=== PATIENT | female | born 1955 | race Caucasian/White ===

== ENCOUNTER 2020-03-02 14:23 | Emergency (ER) | payer MEDICARE, SELFPAY ==
--- NOTE | ~2020-03-02 | XR_ITS ---
EXAMINATION: XR shoulder LT min 2V DATE: 03/02/2020 14:54 INDICATION: Left shoulder pain. TECHNIQUE: 5 views of left shoulder were obtained. COMPARISON: None. FINDINGS: Bone alignment is normal. No fracture. There is fat There is severe osteoarthritis of acrom ioclavicular joint and mild osteoarthritis of glenohumeral joint. IMPRESSION: 1. Polyarticular osteoarthritis. Reviewed, dictated and finalized at location B.
--- NOTE | 2020-03-02 14:28 | ED.UPPEXIN ---
HPI - Extremity Injury (Upper) General Chief Complaint: Extremity Injury, Upper Stated Complaint: Upper extremity injury Time Seen by Provider: 03/02/20 14:36 Source: patient and RN notes reviewed Mode of arrival: ambulatory Limitations: no limitations History of Present Illness HPI narrative: 64-year-old female presents with concern for left shoulder pain. Reports she was lifting a and had a sudden pain to the shoulder that radiated down the arm. Reports she recently went to the ER for chronic shoulder pain and was told she had arthritis. Reports this is new pain related to lifting a case of water bottles today. MD complaint: injury to: left and shoulder Related Data Home Medications Medication Instructions Recorded Confirmed aspirin 81 mg tablet,delayed 81 mg PO DAILY 06/04/19 01/07/20 release estradiol 1 mg tablet 1 mg PO DAILY 06/04/19 01/07/20 latanoprost 0.005 % eye drops 1 drop EACH EYE DAILY 06/04/19 01/07/20 Allergies Allergy/AdvReac Type Severity Reaction Status Date / Time No Known Allergies Allergy Unknown Verified 03/02/20 14:43 Review of Systems Review of Systems: Narrative: CONSTITUTIONAL: Denies malaise, chills, sweats, or fever. CARDIOVASCULAR: Denies chest pain, palpitations, or edema. RESPIRATORY: Denies cough or dyspnea. SKIN: Denies bruising, redness MUSCULOSKELETAL: Reports left shoulder pain NEUROLOGIC: Denies numbness, weakness, or headache. PSYCHIATRIC: Denies anxiety or depression. All systems reviewed & are unremarkable except as noted in HPI and below PMFSH Social History Social History Smoking status: Never smoker Alcohol intake: current Comments At time of signature, agree with nursing past medical, surgical, social and family history. There is no relevant family history pertinent to the presenting complaint Exam Narrative: Exam Narrative: GENERAL: Well-appearing, well-nourished, and in no acute distress. HEAD: Normocephalic, atraumatic. EYES: PERRLA, conjunctivae clear NECK: Supple. CHEST: Speaks in full sentences. No respiratory distress. HEART: Regular rate and rhythm. Normal and equal peripheral pulses. EXTREMITIES: Left shoulder, upper arm has normal strength and sensation, no edema, normal range of motion. 5/5 strength with abduction, abduction, flexion and extension. Normal sensation with sensitivity to light touch and pain. No open wounds, no skin tenting, no devitalized tissue or atrophy, no trophic changes, no ecchymosis, no obvious deformity, alignment normal, no point tenderness, nearby joints and structures intact. Distal pulses palpable and equal bilaterally, skin warm, dry, pink. Capillary refill less than 3 seconds. SKIN: Warm, dry, no rash. NEURO: Alert and oriented x3. PSYCH: Normal mood and affect Course Course Emergency Course: Patient is aware of diagnosis, understands and agrees to treatment plan. Anticipatory guidance given. Patient agrees to follow-up as directed and is aware of reasons to seek care at the emergency department. Portions of this record may have been created with voice recognition software Vital Signs Vital signs: Vital Signs Temperature 98.2 F 03/02/20 14:34 Pulse Rate 92 03/02/20 14:34 Respiratory Rate 16 03/02/20 14:34 Blood Pressure 171/90 H 03/02/20 14:34 Pulse Oximetry 99 03/02/20 14:34 Temperature 98.2 F 03/02/20 14:34 Pulse Rate 92 03/02/20 14:34 Respiratory Rate 16 03/02/20 14:34 Blood Pressure 171/90 H 03/02/20 14:34 Pulse Oximetry 99 03/02/20 14:34 Reviewed. MDM - Extremity Injury (Upper) MDM Narrative Medical decision making narrative: Patients injury and pain is consistent with musculoskeletal etiology. No signs of neurological or vascular compromise on exam. Compartments and tissues are soft without signs of compartment syndrome. Pain is felt appropriate for further evaluation on an outpatient basis. Imaging Data My imp
[2020-03-02 14:34] VITALS: BP 171/90; PULSE 92; RESP 16; TEMP 36.8; O2SAT 99
== END 2020-03-02 15:15 | disposition home or self-care (01) ==
PROVIDERS: Emergency Provider Nurse Practitioner; PCP Family Medicine
DX: S49.92XA Unspecified injury of left shoulder and upper arm, initial encounter (principal); X50.0XXA Overexertion from strenuous movement or load, initial encounter; E78.00 Pure hypercholesterolemia, unspecified; I10 Essential (primary) hypertension; H40.9 Unspecified glaucoma; M10.9 Gout, unspecified; M19.012 Primary osteoarthritis, left shoulder
CPT/HCPCS: 73030; 99213; A4565; G0463

== ENCOUNTER 2020-07-26 09:25 | Outpatient (CLI) | payer MEDICARE, SELFPAY ==
--- NOTE | ~2020-07-26 | XR_ITS ---
XR chest 2V 07/26/2020 09:58 Indication: Preprocedural examination. Procedure: PA and lateral views of the chest Comparison: No prior studies for comparison. Findings: Heart size is normal. Left lung clear. There are surgical changes of the right hilum. There are multiple healed right rib fractures. There are ill-defined infiltrates of the right lower lung z one, most likely atelectasis/scarring. Impression: 1: Ill-defined right basilar infiltrates, most likely atelectasis/scarring. Reviewed, dictated and finalized at location A. [employer] Impression: 1: Ill-defined right basilar infiltrates, most likely atelectasis/scarring.
--- NOTE | 2020-07-26 09:35 | ECG_ITS ---
Measurements Intervals [place] Rate: 83 P: 47 LA: 139 QRS: 12 QRSD: 98 T: 47 QT: 369 QTc: 436 Interpretive Statements SINUS RHYTHM LEFT VENTRICULAR HYPERTROPHY WITH ST-T CHANGE NONSPECIFIC ST & T-WAVE ABNORMALITY- ANTEROLATERAL LEADS BORDERLINE ECG Electronically Signed On 07-26-2020 10:21:33 [employer] by Curt Mcdonald D.O.
== END 2020-07-26 09:26 | disposition home or self-care (01) ==
PROVIDERS: PCP Family Medicine; Visit Provider Family Medicine
DX: Z01.818 Encounter for other preprocedural examination (principal); R91.8 Other nonspecific abnormal finding of lung field; R94.31 Abnormal electrocardiogram [ECG] [EKG]
CPT/HCPCS: 71046; 93005